=== PATIENT | male | born 1960 | race Caucasian/White ===

== ENCOUNTER 2018-10-06 02:42 | Emergency (ER) | payer OTHER ==
[2018-10-06] MEDS: TETRACAINE 0.5% 4 ML OPH BOTH EYES (03:00)
[2018-10-06] MEDS: FLUORESCEIN STRIP BOTH EYES (03:08)
[2018-10-06] MEDS: DIPHTH/TET/ACEL PERTUSS (ADULT) 0.5 ML VIAL IM* ×2 (03:08→03:10)
== END 2018-10-06 06:05 | disposition left against medical advice (07) ==
LOC: FTE 06:05
DX: S05.92XA Unspecified injury of left eye and orbit, initial encounter (principal); X58.XXXA Exposure to other specified factors, initial encounter; Y92.9 Unspecified place or not applicable; Z23 Encounter for immunization
CPT/HCPCS: 70480; 90471; 90715; 99284-25